=== PATIENT | male | born 1940 | race Caucasian/White ===

== ENCOUNTER 2021-06-28 16:56 | Inpatient (IN) | payer MEDICARE, OTHER ==
[~2021-06-28 16:56] MED LIST: Albuterol 200 PUFF (6.7GM INHALER) ONE; Aspirin Chewable 81 MG TAB ONE
[2021-06-28] MEDS ORDERED: cefTRIAXone\\ROCEPHIN 2 GM VIAL ONE (17:09)
[2021-06-28 21:28] LABS: Anion Gap 21 mmol/L (10-20); BUN (Urea Nitrogen) 17 mg/dL (8.4-25.7); Calc. Creatinine Clearance 0 mL/min (70-130); Carbon Dioxide 18 mmol/L (23-31); Chloride 100 mmol/L (98-107); Red Blood Cell (RBC) Count 6.38 mill/uL (4.70-6.10); Sodium 135 mmol/L (136-145); White Blood Cell (WBC) Count 4.2 thou/uL (4.8-10.8)
[2021-06-28 21:29] LABS: ALT (SGPT) 31 U/L (8-55); AST (SGOT) 39 U/L (5-34); Albumin 4.1 g/dL (3.4-4.8); Alkaline Phosphatase 93 U/L (40-110); Bilirubin, Total 1.9 mg/dL (0.2-1.2); Calcium 9.2 mg/dL (7.8-10.44); Globulin 3.1 g/dL (2.4-3.5); Glucose 140 mg/dL (83-110); Hemoglobin 21.8 g/dL (14.0-18.0); Protein, Total 7.2 g/dL (5.8-8.1)
[2021-06-28 21:30] LABS: #Lymphocytes 0.4 thou/uL (1.20-3.40); #Monocytes 0.5 thou/uL (0.11-0.59); #Neutrophils 3.3 thou/uL (1.40-6.50); %Basophils 0.2 % (0.0-1.0); %Eosinophils 0.1 % (0.0-10.0); %Lymphocytes 10.7 % (21.0-51.0); %Monocytes 11.2 % (0.0-10.0); %Neutrophils 77.8 % (42.0-75.0); Mean Corpuscular HGB CONC 36.2 g/dL (32.0-36.0); Mean Corpuscular Hemoglobin 34.1 pg (27.0-31.0); Mean Corpuscular Volume 94.3 fL (78.0-98.0); Mean Platelet Volume 7.9 fL (7.4-10.4); Platelet Count 118 thou/uL (130-400); RBC Distribution Width 12.1 % (11.5-14.5)
[2021-06-28] MEDS ORDERED: Albuterol Sulfate 2.5 mg/3 ml Neb EZPAP PRN (21:41)
[2021-06-28 22:38] LABS: Bilirubin Negative (Negative); Clarity Cloudy (Clear); Glucose, Urine (Dipstick) >=1000 mg/dL (Negative); Ketone, Urine 40 mg/dL (Negative); Leukocyte Negative Leu/uL (Negative); Nitrite Positive (Negative); Protein, Urine (Dipstick) 100 mg/dL (Neg-Trace); Specific Gravity, Urine 1.015 (1.002-1.036); Urobilinogen 0.2 mg/dL (Less than 2)
[2021-06-28 22:39] LABS: Bacteria/HPF 3+ HPF (None Seen); Blood, Urine Small (Negative); RBC/HPF 0-3 HPF (0-3); Squamous Epithelial None Seen HPF (0-3)
[2021-06-29] MEDS ORDERED: cefTRIAXone\\ROCEPHIN 2 GM VIAL ONE (00:41)
[2021-06-29] MEDS ORDERED: Acetaminophen 325 MG TAB ONE (01:51)
[2021-06-29 06:39] VITALS: BMI 35.2
[2021-06-29] MEDS: cefTRIAXone\\ROCEPHIN 2 GM in Sodium Chloride 0.9% 100 ML IVPB SCH ×3 (07:22→21:50)
[2021-06-29] MEDS: Sodium Chloride 0.9% 1,000 ML IV SCH ×2 (07:23→14:16)
[2021-06-29] MEDS: Vancomycin 1.5 GRAM/300 ML BAG 1.5 GM in Premix Bag 1 BAG IVPB SCH ×2 (08:55→21:45)
[2021-06-29] MEDS ORDERED: Enoxaparin Sodium 40 MG/0.4 ML SYRINGE SC SCH (09:00)
[2021-06-29] MEDS ORDERED: Ivermectin 3 MG TAB PO SCH (15:00)
[2021-06-29] MEDS ORDERED: HumaLOG 300 UNITS/3 ML VIAL SC PRN (15:01)
[2021-06-29] MEDS ORDERED: Dextrose 5% in Water 1,000 ML IV PRN (15:01)
[2021-06-29] MEDS ORDERED: Dextrose 50% Abboject 50 ML SYRINGE SLOW IVP PRN (15:01)
[2021-06-29] MEDS: Cholecalciferol 1,000 UNITS (25 MCG) TAB PO SCH (21:03)
[2021-06-29] MEDS: Simvastatin 5 MG TAB PO SCH (21:03)
[2021-06-29] MEDS: Acetaminophen 325 MG TAB PO PRN (21:04)
[2021-06-29] MEDS: Enoxaparin Sodium 40 MG/0.4 ML SYRINGE SC SCH (21:06)
[2021-06-29] MEDS: Dexamethasone 10 MG/ML VIAL SLOW IVP SCH (21:08)
[2021-06-30] MEDS: Sodium Chloride 0.9% 1,000 ML IV SCH ×2 (04:52→15:33)
[2021-06-30] MEDS: HumaLOG 300 UNITS/3 ML VIAL SC PRN ×3 (06:33→15:49)
[2021-06-30 07:57] LABS: Hemoglobin 19.2 g/dL (14.0-18.0); Mean Corpuscular HGB CONC 33.3 g/dL (32.0-36.0); Mean Corpuscular Hemoglobin 31.3 pg (27.0-31.0); Platelet Count 133 thou/uL (130-400); RBC Distribution Width 11.8 % (11.5-14.5); Red Blood Cell (RBC) Count 6.15 mill/uL (4.70-6.10); White Blood Cell (WBC) Count 3.1 thou/uL (4.8-10.8)
[2021-06-30] MEDS ORDERED: metFORMIN 500 MG TAB PO SCH (08:00)
[2021-06-30 08:10] LABS: Lactic Acid 1.3 mmol/L (0.5-2.2)
[2021-06-30 08:14] LABS: Anion Gap 17 mmol/L (10-20); BUN (Urea Nitrogen) 12 mg/dL (8.4-25.7); Calc. Creatinine Clearance 135 mL/min (70-130); Calcium 8.9 mg/dL (7.8-10.44); Carbon Dioxide 16 mmol/L (23-31); Chloride 107 mmol/L (98-107); Glucose 203 mg/dL (83-110); Potassium 4.3 mmol/L (3.5-5.1); Sodium 136 mmol/L (136-145)
[2021-06-30] MEDS: Dexamethasone 10 MG/ML VIAL SLOW IVP SCH ×2 (09:45→21:22)
[2021-06-30] MEDS: Tamsulosin HCl 0.4 MG CAP PO SCH (09:46)
[2021-06-30] MEDS: Zinc Sulfate 220 MG CAP PO SCH (09:46)
[2021-06-30] MEDS: Ascorbic Acid 500 mg Chewable Tablet PO SCH (09:46)
[2021-06-30] MEDS: Enoxaparin Sodium 40 MG/0.4 ML SYRINGE SC SCH ×2 (09:46→21:22)
[2021-06-30] MEDS: Losartan 25 MG TAB PO SCH (09:46)
[2021-06-30] MEDS: Metoprolol Tartrate 100 MG TAB PO SCH (09:47)
[2021-06-30] MEDS: Ivermectin 3 MG TAB PO SCH (09:47)
[2021-06-30] MEDS: Fish Oil 1,000 MG CAP PO SCH (09:47)
[2021-06-30] MEDS: Vancomycin 1.5 GRAM/300 ML BAG 1.5 GM in Premix Bag 1 BAG IVPB SCH ×2 (09:48→21:45)
[2021-06-30 10:37] LABS: Large Platelets SLIGHT; Lymphocytes 10 % (21-51); MDiff Complete? YES; Monocytes 10 % (0-10); Neutrophil 80 % (42-75); Platelet Morphology Comment PLT clumps seen-ADEQ
[2021-06-30] MEDS ORDERED: hydrALAZINE 20 MG/ML VIAL SLOW IVP PRN (11:07)
[2021-06-30] MEDS: Simvastatin 5 MG TAB PO SCH (21:24)
[2021-06-30] MEDS: Cholecalciferol 1,000 UNITS (25 MCG) TAB PO SCH (21:24)
[2021-06-30] MEDS: Acetaminophen 325 MG TAB PO PRN (23:00)
[2021-07-01] MEDS: Sodium Chloride 0.9% 1,000 ML IV SCH (05:25)
[2021-07-01] MEDS: HumaLOG 300 UNITS/3 ML VIAL SC PRN ×2 (05:30→11:29)
[2021-07-01 07:37] LABS: Hemoglobin 19.6 g/dL (14.0-18.0); Platelet Count 151 thou/uL (130-400)
[2021-07-01] MEDS: Metoprolol Tartrate 100 MG TAB PO SCH (09:45)
[2021-07-01] MEDS: Losartan 25 MG TAB PO SCH (09:45)
[2021-07-01] MEDS: Fish Oil 1,000 MG CAP PO SCH (09:45)
[2021-07-01] MEDS: Tamsulosin HCl 0.4 MG CAP PO SCH (09:46)
[2021-07-01] MEDS: Zinc Sulfate 220 MG CAP PO SCH (09:46)
[2021-07-01] MEDS: Dexamethasone 10 MG/ML VIAL SLOW IVP SCH (09:46)
[2021-07-01] MEDS: Enoxaparin Sodium 40 MG/0.4 ML SYRINGE SC SCH (09:46)
[2021-07-01] MEDS: Ivermectin 3 MG TAB PO SCH (09:46)
[2021-07-01] MEDS: Ascorbic Acid 500 mg Chewable Tablet PO SCH (09:47)
[2021-07-01] MEDS: Vancomycin 1.5 GRAM/300 ML BAG 1.5 GM in Premix Bag 1 BAG IVPB SCH (09:48)
[2021-07-01 13:09] VITALS: BP 183/91; TEMP 97
== END 2021-07-01 14:56 | disposition home or self-care (01) | DRG 177 ==
LOC: ERS 16:56 → T4-A 21:45 → OBSVTOIN 06-29 14:48
PROVIDERS: ADMIT Student in an Organized Health Care Education/Training Program; ATTEND Family Medicine
PROC: 8E0ZXY6 Isolation (ICD-10-PCS; principal; 2021-06-29)
DX: U07.1 COVID-19 (principal); J12.82 Pneumonia due to coronavirus disease 2019; J96.01 Acute respiratory failure with hypoxia; N17.9 Acute kidney failure, unspecified; E87.2 Acidosis; N39.0 Urinary tract infection, site not specified; E11.9 Type 2 diabetes mellitus without complications; E86.0 Dehydration; I25.10 Atherosclerotic heart disease of native coronary artery without angina pectoris; I10 Essential (primary) hypertension; D75.1 Secondary polycythemia; Z79.84 Long term (current) use of oral hypoglycemic drugs; Z79.899 Other long term (current) drug therapy; Z95.1 Presence of aortocoronary bypass graft; Z90.49 Acquired absence of other specified parts of digestive tract
CPT/HCPCS: 36415; 36416; 71045; 80048; 80053; 81001; 83605; 83880; 84484; 85007; 85014; 85018; 85025; 85027; 85049; 85379; 86140; 87040; 96365; 96366; 96372; G0378; J0360; J0696; J1100; J1650; J1815; J3370; J3490; J7050